=== PATIENT | female | born 1945 | race Caucasian/White ===

== ENCOUNTER 2020-10-20 19:06 | Emergency (ER) | payer OTHER ==
[~2020-10-20] VITALS: Ht 167.6 cm; Wt 61.2 kg
[2020-10-20] MEDS ORDERED: TRAZODONE HCL150 MG PO (19:19)
== END 2020-10-20 22:20 | disposition home or self-care (01) ==
LOC: ER 19:06
DX: S51.812A Laceration without foreign body of left forearm, initial encounter (principal); S13.8XXA Sprain of joints and ligaments of other parts of neck, initial encounter; S70.02XA Contusion of left hip, initial encounter; B95.61 Methicillin susceptible Staphylococcus aureus infection as the cause of diseases classified elsewhere; Y92.488 Other paved roadways as the place of occurrence of the external cause; W22.11XA Striking against or struck by driver side automobile airbag, initial encounter; Y93.89 Activity, other specified; Y92.413 State road as the place of occurrence of the external cause; Y99.8 Other external cause status